=== PATIENT | male | born 1985 | race Caucasian/White ===

== ENCOUNTER 2019-10-22 15:21 | Observation (INO) | payer OTHER ==
--- NOTE | 2019-10-22 15:58 | ER Document Report ---
ED Extremity Problem, Lower - General Chief Complaint: Knee Pain Stated Complaint: RIGHT KNEE PAIN Time Seen by Provider: 10/22/19 15:46 Primary Care Provider: OBDULIO WEBB MD [Primary Care Provider] - Follow up as needed Mode of Arrival: Wheelchair Information source: Patient Notes: Patient presents complaining of right knee pain for the past 6 days. Patient states that he was initially treated for bursitis with Augmentin but did not have any improvement of his symptoms. Patient states that he went to the orthopedics office and had a knee aspiration performed. Patient states that he spoke with the nurse at Dr. Webb's office who advised him to come to the hospital. Patient denies any fever. Patient denies any trauma to the knee. - HPI Patient complains to provider of: Pain, Swelling Location: Knee Occurred: Last week Quality of pain: Achy Pain Level: 4 Associated symptoms: denies: Fever Exacerbated by: Movement, Walking Relieved by: Nothing - Related Data Allergies/Adverse Reactions: No Known Allergies Allergy (Verified 10/22/19 15:45) Past Medical History - General Information source: Patient - Social History Smoking Status: Never Smoker Frequency of alcohol use: None Drug Abuse: None Lives with: Family Family History: Reviewed & Not Pertinent Musculoskeletal Medical History: Reports Hx Arthritis, Reports Other - Degenerative disc disease Surgical Hx: Negative Review of Systems - Review of Systems Constitutional: No symptoms reported. denies: Fever EENT: No symptoms reported Cardiovascular: No symptoms reported Respiratory: No symptoms reported Gastrointestinal: No symptoms reported Genitourinary: No symptoms reported Male Genitourinary: No symptoms reported Musculoskeletal: Joint pain - Right knee Skin: Change in color - Redness to right knee Hematologic/Lymphatic: No symptoms reported Neurological/Psychological: No symptoms reported Physical Exam - Vital signs Vitals: Temp Pulse Resp BP Pulse Ox 99.1 F 83 16 153/95 H 100 10/22/19 15:26 10/22/19 15:26 10/22/19 15:26 10/22/19 15:26 10/22/19 15:26 - General General appearance: Appears well, Alert In distress: None - HEENT Head: Normocephalic, Atraumatic Eyes: Normal Conjunctiva: Normal Nasal: Normal Mucous membranes: Normal Neck: Normal - Respiratory Respiratory status: No respiratory distress Chest status: Nontender Breath sounds: Normal. No: Rales, Rhonchi, Stridor, Wheezing Chest palpation: Normal - Cardiovascular Rhythm: Regular Heart sounds: S1 appreciated, S2 appreciated Murmur: No - Back Back: Normal - Extremities General upper extremity: Normal inspection, Normal ROM General lower extremity: Tender - Right knee joint tender, erythematous, with mild calor, patient unable to fully flex and extend the joint at the extreme ranges of motion due to tenderness., Edema Knee: Tender - Right knee, Pain with ROM - Neurological Neuro grossly intact: Yes Cognition: Normal Darling Coma Scale Eye Opening: Spontaneous Darling Coma Scale Verbal: Oriented Hammad Coma Scale Motor: Obeys Commands Hammad Coma Scale Total: 15 - Psychological Associated symptoms: Normal affect, Normal mood - Skin Skin Temperature: Warm Skin Moisture: Dry Skin Color: Erythema - To right knee that extends up to the medial right thigh Course - Re-evaluation Re-evalutation: 10/22/19 15:[address] Webb who states that patient is going to be admitted to his services, advises giving IV antibiotics to cover for staph in addition to rifampin 300 mg twice a day. - Vital Signs Vital signs: Temp Pulse Resp BP Pulse Ox 99.1 F 83 16 153/95 H 100 10/22/19 15:26 10/22/19 15:26 10/22/19 15:26 10/22/19 15:26 10/22/19 15:26 Discharge - Discharge Clinical Impression: Septic arthritis Qualifiers: Septic arthritis location: knee Septic arthritis organism: staphylococcal Laterality: right Qualified Code(s): M00.061 - Staphylococcal arthritis, right knee Right knee pain Qualifiers: Chronicity: acute Qualified Code(s): M25.561 - Pain in right knee Condition: Stable Disposition: ADMITTED INPATIENT Admitting Provider: odell Unit Admitted: Medical Floor Referrals: OBDULIO WEBB MD [Primary Care Provider] - Follow up as needed
[2019-10-22] MEDS ORDERED: CEFAZOLIN 2 GM/D5W RTU 2 GM/50 ML RTUPB IV SCH ×2 (16:00→17:00)
[2019-10-22] MEDS ORDERED: HYDROCODONE/ACETAMINOPHEN 5-325 MG TABLET PO ONE (16:01)
[2019-10-22 16:53] LABS: HEMATOCRIT 41.4 % (37.9-51.0); MEAN CORPUSCULAR HEMOGLOBIN 29.6 pg (27.0-33.4); MEAN CORPUSCULAR HGB CONC 33.9 g/dL (32.0-36.0); MEAN CORPUSCULAR VOLUME 87 fl (80-97); PLATELET COUNT 320 10^3/uL (150-450); RED BLOOD COUNT 4.74 10^6/uL (4.35-5.55); RED CELL DISTRIBUTION WIDTH 12.5 % (11.5-14.0); WHITE BLOOD COUNT 16.8 10^3/uL (4.0-10.5)
[2019-10-22 17:09] LABS: ALKALINE PHOSPHATASE 114 U/L (38-126); ANION GAP 8 (5-19); ASPARTATE AMINO TRANSFERASE 106 U/L (17-59); BILIRUBIN,DIRECT 0.1 mg/dL (0.0-0.4); BILIRUBIN,TOTAL 0.5 mg/dL (0.2-1.3); BLOOD UREA NITROGEN 23 mg/dL (7-20); C-REACTIVE PROTEIN 49.9 mg/L (<10.0); CALCIUM 9.4 mg/dL (8.4-10.2); CARBON DIOXIDE 32 mmol/L (22-30); CHLORIDE 100 mmol/L (98-107); GLUCOSE 101 mg/dL (75-110); POTASSIUM 4.2 mmol/L (3.6-5.0); TOTAL PROTEIN 7.1 g/dL (6.3-8.2)
[2019-10-22] MEDS ORDERED: NORMAL SALINE 1000 ML 1,000 ML IV ONE (17:24)
[2019-10-22 17:30] LABS: ABSOLUTE LYMPHOCYTES# (MANUAL) 1.3 10^3/uL (0.5-4.7); ABSOLUTE MONOCYTES # (MANUAL) 1.7 10^3/uL (0.1-1.4); BASOPHILS % (MANUAL) 0 % (0-2); EOSINOPHILS % (MANUAL) 0 % (0-6); LYMPHOCYTES % (MANUAL) 8 % (13-45); MONOCYTES % (MANUAL) 10 % (3-13); PLATELET CLUMPS PRESENT; PLATELET COMMENT ADEQUATE; PLATELET LARGE PRESENT; RBC MORPHOLOGY COMMENT NORMO-CYTIC/CHROMIC; SEGMENTED NEUTROPHILS % (MAN) 82 % (42-78); TOTAL CELLS COUNTED 100
[2019-10-22 17:43] LABS: ERYTHROCYTE SEDIMENTATION RATE 49 mm/hr (0-15)
[2019-10-22] MEDS ORDERED: RIFAMPIN INJ 600 MG VIAL IV SCH (18:00)
[2019-10-22] MEDS: RIFAMPIN 300 MG in NORMAL SALINE 250 ML IV SCH (18:05)
[2019-10-22] MEDS: TRAMADOL HCL 50 MG TABLET PO PRN (20:31)
[2019-10-22] MEDS: CEFAZOLIN SODIUM 2 GM in DEXTROSE 5%-WATER 100 ML IV SCH (20:31)
[2019-10-22] MEDS: RINGERS SOLUTION,LACTATED 1,000 ML IV PRN (20:32)
[2019-10-23] MEDS ORDERED: CEFAZOLIN 2 GM/D5W RTU 2 GM/50 ML RTUPB IV ONE (01:28)
[2019-10-23] MEDS: CEFAZOLIN SODIUM 2 GM in DEXTROSE 5%-WATER 100 ML IV SCH ×3 (02:16→18:01)
[2019-10-23] MEDS: TRAMADOL HCL 50 MG TABLET PO PRN ×3 (03:49→18:00)
[2019-10-23] MEDS: RINGERS SOLUTION,LACTATED 1,000 ML IV PRN ×2 (05:15→16:16)
[2019-10-23] MEDS: RIFAMPIN 300 MG in NORMAL SALINE 250 ML IV SCH (05:16)
--- NOTE | 2019-10-23 07:35 | PDOC H&P ---
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 He underwent an aspiration in the office and was started empirically on Augmentin. Cultures of stubbly grown a pansensitive staph aureus. The patient's clinical condition did not improve and when he was seen in the office yesterday I decision was made to hospitalize and start IV antibiotics. Past Medical History Medical History: None Musculoskeltal Medical History: Reports: Arthritis, Other - Degenerative disc disease Psychiatric Medical History: Reports: Depression Past Surgical History Past Surgical History: Reports: None Social History Information Source: Patient, Dr. Roth, [facility] Records Lives with: Family Smoking Status: Former Smoker Frequency of Alcohol Use: Occasional Drugs: None Family History Family History: Reviewed & Not Pertinent Parental Family History Reviewed: No Children Family History Reviewed: No Sibling(s) Family History Reviewed.: No Medication/Allergy Home Medications: Citalopram Hydrobromide [Celexa 20 mg Tablet] 20 mg PO QHS 10/22/19 Gabapentin [Neurontin 300 mg Capsule] 300 mg PO QID 10/22/19 Hydrocodone Bitartrate [Hysingla ER] 20 mg PO DAILY 10/22/19 Hydrocodone/Acetaminophen [[place] 10-325 mg Tablet] 1 tab PO Q8 10/22/19 Prazosin HCl [Minipress] 2 mg PO QHS 10/22/19 Tizanidine HCl [Zanaflex 4 mg Tablet] 4 mg PO QID 10/22/19 Allergies/Adverse Reactions: No Known Allergies Allergy (Verified 10/22/19 15:45) Review of Systems All systems: as per H Review of Systems: Patient denies constitutional symptoms Physical Exam Vital Signs: Temp Pulse Resp BP Pulse Ox 36.6 C 64 12 138/93 H 100 10/23/19 01:20 10/23/19 01:20 10/23/19 01:20 10/23/19 01:20 10/23/19 01:20 Intake & Output 10/22/19 10/23/19 10/24/19 06:59 06:59 06:59 Intake Total 2700 Output Total 5 Balance 2695 Weight 94 kg Physical Exam: Patient is middle-aged white male with long hair, coughlin, and heavily tattooed. Pertinent examination is really about the right knee. General appearance: PRESENT: mild distress Head exam: PRESENT: normocephalic Respiratory exam: PRESENT: unlabored Cardiovascular exam: PRESENT: RRR Pulses: PRESENT: +1 pedal pulses bilateral Extremities exam: PRESENT: other - Right knee in the prepatellar region is erythematous, indurated, and tender. Passive range of motion of the knee is relatively pain-free. There is not an underlying effusion. There is no popliteal or inguinal adenopathy. Distal neurovascular examination is intact. Results Laboratory Results: 10/22/19 16:28 10/22/19 16:28 10/22/19 10/22/19 16:28 16:28 WBC 16.8 H RBC 4.74 Hgb 14.0 Hct 41.4 MCV 87 MCH 29.6 MCHC 33.9 RDW 12.5 Plt Count 320 Seg Neutrophils % Not Reportable Sodium 139.6 Potassium 4.2 Chloride 100 Carbon Dioxide 32 H Anion Gap 8 BUN 23 H Creatinine 0.94 Est GFR ( Amer) > 60 Glucose 101 Calcium 9.4 Total Bilirubin 0.5 AST 106 H Alkaline Phosphatase 114 C-Reactive Protein 49.9 H Total Protein 7.1 Albumin 4.0 Status: Imported from PACS Assessment & Plan - Diagnosis (1) Septic prepatellar bursitis of right knee Is this a current diagnosis for this admission?: Yes Plan: 34-year-old white male with a septic right prepatellar bursitis that is not responded to oral therapy. Patient is now admitted for IV therapy with the possibility of a surgical drainage tomorrow if is not significant improvement. - Time Time Spent: 50 to 70 Minutes Anticipated discharge: Home Within: within 48 hours
[2019-10-23] MEDS: GABAPENTIN 300 MG CAPSULE PO SCH ×2 (08:53→17:59)
[2019-10-23] MEDS: HYDROCODONE/ACETAMINOPHEN 10-325 MG TABLET PO SCH ×2 (14:14→21:58)
[2019-10-23] MEDS: TIZANIDINE HCL 4 MG TABLET PO SCH (18:00)
[2019-10-23] MEDS: RIFAMPIN 300 MG CAPSULE PO SCH (18:01)
[2019-10-24] MEDS: CEFAZOLIN SODIUM 2 GM in DEXTROSE 5%-WATER 100 ML IV SCH ×2 (01:27→09:15)
[2019-10-24] MEDS: TRAMADOL HCL 50 MG TABLET PO PRN ×3 (02:38→22:44)
[2019-10-24] MEDS ORDERED: RIFAMPIN 300 MG CAPSULE PO SCH (06:00)
[2019-10-24] MEDS: HYDROCODONE/ACETAMINOPHEN 10-325 MG TABLET PO SCH ×3 (06:26→21:24)
[2019-10-24] MEDS: RIFAMPIN 300 MG CAPSULE PO SCH (06:32)
[2019-10-24] MEDS: GABAPENTIN 300 MG CAPSULE PO SCH ×2 (08:29→17:49)
[2019-10-24] MEDS: RINGERS SOLUTION,LACTATED 1,000 ML IV PRN ×2 (08:31→16:28)
[2019-10-24] MEDS ORDERED: FENTANYL CITRATE INJ/PF 100 MCG/2 ML AMPUL ONE ×3 (13:41→14:51)
[2019-10-24] MEDS ORDERED: PROMETHAZINE HCL INJ 25 MG/1 ML VIAL IV PRN (13:44)
[2019-10-24] MEDS ORDERED: MEPERIDINE HCL/PF INJ 25 MG/1 ML DISP.SYRIN IV PRN (13:44)
[2019-10-24] MEDS ORDERED: DIPHENHYDRAMINE HCL 50 MG/ML VIAL IV PRN (13:44)
[2019-10-24] MEDS ORDERED: FENTANYL CITRATE INJ/PF 100 MCG/2 ML AMPUL IV PRN ×3 (13:44)
[2019-10-24] MEDS ORDERED: MORPHINE SULFATE 10 MG/ML INJ IV PRN (13:44)
[2019-10-24] MEDS ORDERED: ONDANSETRON HCL INJ/PF 4 MG/2 ML SDV ONE (13:58)
[2019-10-24] MEDS ORDERED: KETOROLAC TROMETHAMINE 60 MG/2 ML SDV ONE (13:58)
[2019-10-24] MEDS ORDERED: MIDAZOLAM 2 MG/2 ML INJ ONE (13:58)
[2019-10-24] MEDS ORDERED: PROPOFOL INJ 200 MG/20 ML VIAL IV ONE (13:58)
--- NOTE | 2019-10-24 14:51 | Operative Report ---
Operative Report DATE OF SURGERY: 10/24/19 PREOPERATIVE DIAGNOSIS: Right septic prepatellar bursitis OPERATION: Irrigation debridement prepatellar bursectomy SURGEON: OBDULIO WEBB ANESTHESIA: GA TISSUE REMOVED OR ALTERED: Cultures to pathology ESTIMATED BLOOD LOSS: 25 INTRAOPERATIVE FINDINGS: Purulent fluid collection PROCEDURE: With the patient supine on the operating table the right lower extremities prepped and draped in a sterile fashion. The limb is elevated for exsanguination tourniquet inflated 280 torr. A longitudinal incision is made over the prepatellar bursa and upon transecting the dermis a large amount of purulent material was encountered. The fluid was collected. Culture swabs were used to sample it and the remainder the remainder of the fluid collection is sent to microbiology. The wound is then debrided using bustamante elevators and rongeurs. Its irrigated with 3 L of normal saline containing Betadine and pulse lavage. It is packed with iodoform gauze and then closed loosely with nylon suture. A sterile compressive dressing is applied and the patient's returned to the PACU in satisfactory condition.
[2019-10-24] MEDS: MORPHINE SULFATE 10 MG/ML INJ ONE ×3 (15:13→15:30)
[2019-10-24] MEDS: TIZANIDINE HCL 4 MG TABLET PO SCH (17:48)
[2019-10-24] MEDS ORDERED: CEFTRIAXONE 2 GM/D5W RTU 2 GM/50 ML RTUPB IV SCH (18:00)
[2019-10-24] MEDS ORDERED: VANCOMYCIN HCL 1,500 MG in DEXTROSE 5%-WATER 250 ML IV ONE (18:00)
[2019-10-25] MEDS: VANCOMYCIN HCL 1,250 MG in DEXTROSE 5%-WATER 250 ML IV SCH ×2 (01:17→09:08)
[2019-10-25] MEDS: HYDROCODONE/ACETAMINOPHEN 10-325 MG TABLET PO SCH (05:48)
--- NOTE | 2019-10-25 06:19 | PDOC DISCHARGE SUMMARY ---
Impression - Admit/DC Date/PCP Admission Date/Primary Care Provider: 10/22/19 18:11 DAVID CAREY MD Discharge Date: 10/25/19 - Discharge Diagnosis (1) Septic prepatellar bursitis of right knee Is this a current diagnosis for this admission?: Yes - Additional Information Resuscitation Status: Full Code Discharge Diet: As Tolerated Discharge Activity: Balance Activity w/Rest, No tub bath Referrals: OBDULIO WEBB MD [ACTIVE STAFF] - Follow up as needed Prescriptions: Sulfamethoxazole/Trimethoprim [Septra-Ds 800-160 mg Tablet] 1 tab PO BID #20 tablet Home Medications: Citalopram Hydrobromide [Celexa 20 mg Tablet] 20 mg PO QHS 10/22/19 Gabapentin [Neurontin 300 mg Capsule] 300 mg PO QID 10/22/19 Hydrocodone Bitartrate [Hysingla ER] 20 mg PO DAILY 10/22/19 Hydrocodone/Acetaminophen [[place] 10-325 mg Tablet] 1 tab PO Q8 10/22/19 Prazosin HCl [Minipress] 2 mg PO QHS 10/22/19 Tizanidine HCl [Zanaflex 4 mg Tablet] 4 mg PO QID 10/22/19 Sulfamethoxazole/Trimethoprim [Septra-Ds 800-160 mg Tablet] 1 tab PO BID #20 tablet 10/25/19 History of Present Illiness History of Present Illness: 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 He was treated in the office with an aspiration and initiation of oral antibiotic therapy. This progressed and he returned to the emergency room with increasing pain but no constitutional symptoms. Hospital Course Hospital Course: The patient was admitted to the orthopedic service and started on IV Keflex rif ampin to treat a pansensitive staph which was the result of the cultures in the office. The patient failed to improve in fact progressed on this given. He was taken to the operating room where he underwent I&D of a right prepatellar septic bursitis. The patient was considerably symptomatically proved following this. The patient underwent a dressing change by myself on the first postoperative m orning. The amount of erythema and induration about the knee is dramatically decreased. Physical Exam Vital Signs: Temp Pulse Resp BP Pulse Ox 36.8 C 73 16 139/93 H 93 10/25/19 00:00 10/25/19 00:00 10/25/19 00:00 10/25/19 00:00 10/25/19 00:00 Intake & Output 10/23/19 10/24/19 10/25/19 06:59 06:59 06:59 Intake Total 2700 2660 5600 Output Total 5 4905 1205 Balance 2695 -719 4362 Weight 94 kg 94 kg 94 kg General appearance: PRESENT: no acute distress, mild distress Head exam: PRESENT: normocephalic Respiratory exam: PRESENT: unlabored Cardiovascular exam: PRESENT: RRR Pulses: PRESENT: +1 pedal pulses bilateral Vascular exam: PRESENT: normal capillary refill GI/Abdominal exam: PRESENT: soft Rectal exam: PRESENT: deferred Musculoskeletal exam: PRESENT: other - Right knee wound is well approximated with suture. There is packing them emanates from the superior aspect of the wound. Neurological exam: PRESENT: alert, awake, oriented to person, oriented to place, oriented to time, oriented to situation, CN II-XII grossly intact. ABSENT: motor sensory deficit Skin exam: PRESENT: dry, intact, warm. ABSENT: cyanosis, rash Results Laboratory Results: WBC 16.8 10^3/uL (4.0-10.5) H 10/22/19 16:28 RBC 4.74 10^6/uL (4.35-5.55) 10/22/19 16:28 Hgb 14.0 g/dL (13.5-17.0) 10/22/19 16:28 Hct 41.4 % (37.9-51.0) 10/22/19 16:28 MCV 87 fl (80-97) 10/22/19 16:28 MCH 29.6 pg (27.0-33.4) 10/22/19 16:28 MCHC 33.9 g/dL (32.0-36.0) 10/22/19 16:28 RDW 12.5 % (11.5-14.0) 10/22/19 16:28 Plt Count 320 10^3/uL (150-450) 10/22/19 16:28 Lymph % (Auto) Not Reportable 10/22/19 16:28 Steele % (Auto) Not Reportable 10/22/19 16:28 Eos % (Auto) Not Reportable 10/22/19 16:28 Baso % (Auto) Not Reportable 10/22/19 16:28 Absolute Neuts (auto) Not Reportable 10/22/19 16:28 Absolute Lymphs (auto) Not Reportable 10/22/19 16:28 Absolute Monos (auto) Not Reportable 10/22/19 16:28 Absolute Eos (auto) Not Reportable 10/22/19 16:28 Absolute Basos (auto) Not Reportable 10/22/19 16:28 Total Counted 100 10/22/19 16:28 Seg Neutrophils % Not Reportable 10/22/19 16:28 Seg Neuts % (Manual) 82 % (42-78) H 10/22/19 16:28 Lymphocytes % (Manual) 8 % (13-45) L 10/22/19 16:28 Monocytes % (Manual) 10 % (3-13) 10/22/19 16:28 Eosinophils % (Manual) 0 % (0-6) 10/22/19 16:28 Basophils % (Manual) 0 % (0-2) 10/22/19 16:28 Abs Neuts (Manual) 13.8 10^3/uL (1.7-8.2) H 10/22/19 16:28 Abs Lymphs (Manual) 1.3 10^3/uL (0.5-4.7) 10/22/19 16:28 Abs Monocytes (Manual) 1.7 10^3/uL (0.1-1.4) H 10/22/19 16:28 Absolute Eos (Manual) 0.0 10^3/uL (0.0-0.6) 10/22/19 16:28 Abs Basophils (Manual) 0.0 10^3/uL (0.0-0.2) 10/22/19 16:28 Clumped Platelets PRESENT 10/22/19 16:28 Large Platelets PRESENT 10/22/19 16:28 Platelet Comment ADEQUATE 10/22/19 16:28 RBC Morph Comment NORMO-CYTIC/CHROMIC 10/22/19 16:28 ESR 49 mm/hr (0-15) H 10/22/19 16:28 Sodium 139.6 mmol/L (137-145) 10/22/19 16:28 Potassium 4.2 mmol/L (3.6-5.0) 10/22/19 16:28 Chloride 100 mmol/L (98-107) 10/22/19 16:28 Carbon Dioxide 32 mmol/L (22-30) H 10/22/19 16:28 Anion Gap 8 (5-19) 10/22/19 16:28 BUN 23 mg/dL (7-20) H 10/22/19 16:28 Creatinine 0.94 mg/dL (0.52-1.25) 10/22/19 16:28 Est GFR ( Amer) > 60 (>60) 10/22/19 16:28 Est GFR (MDRD) Non-Af > 60 (>60) 10/22/19 16:28 Glucose 101 mg/dL (75-110) 10/22/19 16:28 Calcium 9.4 mg/dL (8.4-10.2) 10/22/19 16:28 Total Bilirubin 0.5 mg/dL (0.2-1.3) 10/22/19 16:28 Direct Bilirubin 0.1 mg/dL (0.0-0.4) 10/22/19 16:28 Neonat Total Bilirubin Not Reportable 10/22/19 16:28 Neonat Direct Bilirubin Not Reportable 10/22/19 16:28 Neonat Indirect Bili Not Reportable 10/22/19 16:28 AST 106 U/L (17-59) H 10/22/19 16:28 ALT 115 U/L (<50) H 10/22/19 16:28 Alkaline Phosphatase 114 U/L (38-126) 10/22/19 16:28 C-Reactive Protein 49.9 mg/L (<10.0) H 10/22/19 16:28 Total Protein 7.1 g/dL (6.3-8.2) 10/22/19 16:28 Albumin 4.0 g/dL (3.5-5.0) 10/22/19 16:28 SARS-CoV-2 (PCR) NEGATIVE (NEGATIVE) 10/22/19 21:15 Plan Plan of Treatment: Patient to be discharged home with dressing changes on a daily basis and advancing the underlying packing 3 ounces per dressing change. This is demonstrated to the patient by myself. He be discharged home on Septra DS 1 tab p.o. twice daily for 10 days. Follow-up with myself at the [facility] for surgery at the end of that time. Stroke Is this a Stroke Patient?: No Stroke Pt being discharged on Anti-thrombolytic therapy?: No Reason(s) for not prescribing Anti-thrombolytic therapy:: Not indicated Acute Heart Failure - Is this a Heart Failure Patient?: No
[2019-10-25 06:24] LABS: ABSOLUTE EOSINOPHILS # (AUTO) 0.1 10^3/uL (0.0-0.6); ABSOLUTE LYMPHOCYTES (AUTO) 1.7 10^3/uL (0.5-4.7); ABSOLUTE MONOCYTES (AUTO) 1.3 10^3/uL (0.1-1.4); BASOPHILS % (AUTO) 0.2 % (0-2); EOSINOPHILS % (AUTO) 0.7 % (0-6); HEMATOCRIT 41.4 % (37.9-51.0); LYMPHOCYTES % (AUTO) 11.9 % (13-45); MEAN CORPUSCULAR HEMOGLOBIN 29.3 pg (27.0-33.4); MEAN CORPUSCULAR HGB CONC 33.8 g/dL (32.0-36.0); MEAN CORPUSCULAR VOLUME 87 fl (80-97); MONOCYTES % (AUTO) 9.3 % (3-13); PLATELET COUNT 318 10^3/uL (150-450); RED BLOOD COUNT 4.77 10^6/uL (4.35-5.55); RED CELL DISTRIBUTION WIDTH 12.4 % (11.5-14.0); SEGMENTED NEUTROPHILS % (AUTO) 77.9 % (42-78); TOTAL CELLS COUNTED % (AUTO) 100 %; WHITE BLOOD COUNT 14.1 10^3/uL (4.0-10.5)
[2019-10-25 06:46] LABS: BLOOD UREA NITROGEN 19 mg/dL (7-20); CALCIUM 8.9 mg/dL (8.4-10.2); GLUCOSE 105 mg/dL (75-110); POTASSIUM 4.6 mmol/L (3.6-5.0)
[2019-10-25 06:49] LABS: CARBON DIOXIDE 32 mmol/L (22-30); CHLORIDE 97 mmol/L (98-107)
[2019-10-25 06:53] LABS: ANION GAP 7 (5-19)
[2019-10-25 06:58] LABS: C-REACTIVE PROTEIN 183.1 mg/L (<10.0)
[2019-10-25 07:03] LABS: ERYTHROCYTE SEDIMENTATION RATE 63 mm/hr (0-15)
[2019-10-25] MEDS: GABAPENTIN 300 MG CAPSULE PO SCH (07:49)
[2019-10-25 10:26] VITALS: BP 139/93
== END 2019-10-25 11:00 | disposition home or self-care (01) ==
LOC: ER 15:21 → EH 18:11 → INTOOBSV 18:11 → 4N 19:05
PROVIDERS: ADMIT Orthopaedic Surgery; ATTEND Orthopaedic Surgery
DX: A41.01 Sepsis due to Methicillin susceptible Staphylococcus aureus (principal); M71.161 Other infective bursitis, right knee; Z87.891 Personal history of nicotine dependence; Z03.818 Encounter for observation for suspected exposure to other biological agents ruled out
CPT/HCPCS: 99284; 36415 ×2; 87040; 87070 ×2; 87205; 85025 ×2; 85652 ×2; 87635; 87075; 86140 ×2; 87077; 80048; 80053; 87186; 01320; 27340; J2250; J3490 ×5; J0690 ×3; J1885; J3010; J2270; J2405; J7060 ×5; J7030; J7050 ×2; J7120 ×3; J2704; J3370 ×2; J0696; C9803; 1320; G0378